=== PATIENT | male | born 1995 | race Caucasian/White ===

== ENCOUNTER 2017-07-21 17:47 | Emergency (ER) | payer SELFPAY ==
[~2017-07-21] VITALS: Ht 188 cm; Wt 111.1 kg
[2017-07-21 17:56] VITALS: BP 151/98
[2017-07-21] MEDS ORDERED: ACETAMINOPHEN 325 MG TABLET ONE (18:15)
== END 2017-07-21 18:39 | disposition home or self-care (01) ==
LOC: ER 17:49
DX: S13.9XXA Sprain of joints and ligaments of unspecified parts of neck, initial encounter (principal); W22.8XXA Striking against or struck by other objects, initial encounter; Y93.I9 Activity, other involving external motion; Y92.89 Other specified places as the place of occurrence of the external cause; Y99.8 Other external cause status
CPT/HCPCS: 99283; A4606; Z7610